=== PATIENT | male | born 1970 | race Hispanic/Latino ===

== ENCOUNTER 2017-07-08 12:40 | Emergency (ER) | payer SELFPAY ==
[2017-07-08] MEDS ORDERED: NA CHLORIDE 0.9% 1,000 ML ONE (15:02)
[2017-07-08] MEDS ORDERED: MORPHINE 4 MG/ML SYR ONE (15:02)
[2017-07-08] MEDS ORDERED: ONDANSETRON 4 MG/2 ML VIAL ONE (15:02)
[2017-07-08 15:10] LABS: Absolute Lymphocytes (CBC) 3.2 K/uL (0.7-4.9); Absolute Monocytes 0.7 K/uL (0.1-1.3); Absolute Neutrophil 4.5 K/uL (1.8-8.0); Basophils % 0.9 % (0-1.3); Hematocrit 40.6 % (39.6-49.0); MCH 32.8 pg (27.0-35.0); MPV 8.3 fL (7.6-11.3); Monocytes % 7.8 % (3.3-12.3); RBC Red Blood Cell Count 4.11 M/uL (4.33-5.43)
[2017-07-08 16:05] LABS: Bicarbonate 31 mEq/L (21-31); Glucose Level 98 mg/dL (65-120); Potassium 3.8 mEq/L (3.6-5.0); Sodium Level 132 mEq/L (135-145)
[2017-07-08 16:08] LABS: BUN Blood Urea Nitrogen 11 mg/dL (6-20); Glomerular Filtration Rate > 90 mL/min (=/>90)
--- NOTE | 2017-07-08 16:40 | RAD REPORT ---
EXAM DESCRIPTION: CT - Soft Tissue Neck W/Contr - 07/08/2017 4:26 pm CLINICAL HISTORY: Neck pain and neck swelling COMPARISON: None. TECHNIQUE: Computed axial tomography of the neck was obtained. 50 cc Isovue-300 administered intrave nously. Coronal and sagittal reconstruction was performed All CT scans are performed using dose optimization technique as appropriate and may include automated exposure control or mA/KV adjustment according to patient size. FINDINGS: A lucency surrounds the right mandibular wisdom tooth. The sinuses are clear. Deformity of the medial wall of the right orbit probably is secondary to old t rauma. The pharynx, larynx, tongue base and subglottic trachea appear unremarkable. Parotid, submandibular and thyroid glands appear unremarkable. No lymphadenopathy is seen IMPRESSION: Lucency surrounding the right mandibular wisdom tooth may indicate an abscess
[2017-07-08] MEDS ORDERED: CLINDAMYCIN 900MG/D5W 900 MG/50 ML BAG IV ONE (16:52)
[2017-07-08] MEDS ORDERED: KETOROLAC 30 MG/ML INJ ONE (16:52)
--- NOTE | 2017-07-08 16:54 | EDPHYS ---
Physician Documentation [facility] Name: Aniceto Zimmerman Sr Age: 47 yrs Sex: Male : 1970 Arrival Date: 07/08/2017 Time: 12:41 Bed 17 Private MD: Aldo Ac E ED Physician Aldo Beltran HPI: 07/08 13:40 This 47 yrs old Male presents to ER via Ambulatory with complaints of cp Toothache, Swollen Glands. 13:40 The patient presents with dysphagia, of both solids and liquids. cp 13:40 The patient describes throat pain as constant. Onset: The symptoms/episode cp began/occurred yesterday. The patient presents with pain. The problem is located in the left and right lower back molars. Duration: The symptoms are continuous, and are steadily getting worse. Associated signs and symptoms: Pertinent positives: swelling, mandibular, Pertinent negatives: fever, vomiting. 13:40 Patient reports being seen yesterday by dentist and being referred to maxillary and cp facial surgeon for removal of wisdom teeth. Historical: - Allergies: 12:52 No Known Allergies; aj - Home Meds: 12:52 B/P Pill [Active]; Methadone 110mg Oral once daily for Chronic pain [Active]; aj levothyroxine 50 mcg tab 1 tab once daily for Hypothyroidism [Active]; hydrochlorothiazide 50 mg Oral tab 1 tab once daily for EDEMA [Active]; - PMHx: 12:52 Hepatitis; Hypertension; Thyroid problem; aj - PSHx: 12:52 None; aj - Immunization history:: Adult Immunizations up to date. - Social history:: Smoking status: Patient uses tobacco products, smokes one-half pack cigarettes per day. ROS: 13:45 Constitutional: Negative for body aches, chills, fever, poor PO intake. cp 13:45 Eyes: Negative for injury, pain, redness, and discharge. cp 13:45 ENT: Positive for dental pain, difficulty swallowing. cp 13:45 Neck: Negative for pain with movement, pain at rest, stiffness. cp 13:45 Cardiovascular: Negative for chest pain, edema. 13:45 Respiratory: Negative for cough, pleurisy, shortness of breath, wheezing. 13:45 Abdomen/GI: Negative for abdominal pain, nausea, vomiting, and diarrhea. 13:45 Skin: Negative for cellulitis, rash. 13:45 Neuro: Negative for altered mental status, headache, weakness. 13:45 All other systems are negative. Exam: 13:50 Constitutional: The patient appears in no acute distress, alert, awake, non-toxic, well cp developed, well nourished. 13:50 Eyes: Pupils equal round and reactive to light, extra-ocular motions intact. Lids and cp lashes normal. Conjunctiva and sclera are non-icteric and not injected. Cornea within normal limits. Periorbital areas with no swelling, redness, or edema. 13:50 Head/face: Noted is swelling, that is mild, of the left jaw. 13:50 ENT: External ear(s): are unremarkable, Ear canal(s): are normal, clear, TM's: bulging, cp is not appreciated, bilaterally, dullness, bilaterally, erythema, is not appreciated, bilaterally, Nose: is normal, Mouth: Lips: moist, Oral mucosa: moist, Tongue: is normal, abscess, is not appreciated, Posterior pharynx: Airway: patent, Uvula: midline, erythema, that is moderate, exudate, that is moderate, Dental exam: dental caries, diffusely, gum swelling, that is mild, specifically in the left and right lower back gumline, missing teeth, diffusely, pain, that is moderate, specifically in the lower left third molar (#17) and lower right third molar (#32), Voice: is hoarse. 13:50 Neck: ROM/movement: is normal, is supple, no range of motions limitations, no meningismus, no nuchal rigidity. 13:50 Chest/axilla: Inspection: normal, Palpation: is normal, no crepitus, no tenderness. 13:50 Cardiovascular: Rate: normal, Rhythm: regular. 13:50 Respiratory: the patient does not display signs of respiratory distress, Respirations: cp normal, no use of accessory muscles, no retractions, no splinting, no tachypnea, Breath sounds: are clear throughout, no decreased breath sounds, no stridor, no wheezing. 13:50 Abdomen/GI: Exam negative for discomfort, distension, guarding, Inspection: abdomen appears normal. 13:50 Back: pain, is absent, ROM is normal. 13:50 Skin: cellulitis, is not appreciated, no rash present. 13:50 Neuro: Orientation: to person, place \T\ time. Mentation: lucid, able to follow commands, Cerebellar function: is grossly normal, Motor: moves all fours, strength is normal, Sensation: no obvious gross deficits. Vital Signs: 12:52 BP 138 / 100; Pulse 69; Resp 17; Temp 98.5; Pulse Ox 98% on R/A; Weight 112.94 kg; aj Height 5 ft. 9 in. (175.26 cm); Pain 10/10; 17:20 BP 153 / 104; Pulse 59; Resp 16; Pulse Ox 99% on R/A; Pain 10/10; ss 12:52 Body Mass Index 36.77 (112.94 kg, 175.26 cm) aj 17:20 pt reports he takes BP medicaiton and verbalizes understanding to mention BP when ss following up with PCP MDM: 13:25 Patient medically screened. cp 14:00 Differential diagnosis: dental abscess group A strep tonsillitis, soren's angina, cp peritonsillar abscess retropharyngeal abcess. 16:50 Data reviewed: vital signs, nurses notes, lab test result(s), radiologic studies, CT cp scan. 16:50 Counseling: I had a detailed discussion with the patient and/or guardian regarding: the cp historical points, exam findings, and any diagnostic results supporting the discharge/admit diagnosis, lab results, radiology results, the need for outpatient follow up, maxillary and facial surgery, to return to the emergency department if symptoms worsen or persist or if there are any questions or concerns that arise at home. Response to treatment: the patient's symptoms have mildly improved after treatment. 07/08 13:36 Order name: Strep; Complete Time: 14:53 cp 07/08 14:54 Interpretation: Reviewed. cp 07/08 14:35 Order name: CBC with Diff; Complete Time: 15:50 cp 07/08 15:50 Interpretation: Normal except: RBC 4.11; HGB 13.4. cp 07/08 14:35 Order name: BMP; Complete Time: 16:34 cp 07/08 16:34 Interpretation: Normal except: NA 132; CL 96. cp 07/08 14:35 Order name: CT Soft Tissue Neck W/contr; Complete Time: 16:42 cp 07/08 14:42 Order name: Throat Culture EDMS 07/08 13:37 Order name: PO challenge; Complete Time: 14:12 cp 07/08 14:35 Order name: IV; Complete Time: 14:58 cp Administered Medications: 15:10 Drug: NS 0.9% 1000 ml Route: IV; Rate: 1 bolus; Site: right antecubital; hb 17:33 Follow up: IV Status: Completed infusion ss 15:10 Drug: morphine 2 mg Route: IVP; Site: right antecubital; hb 16:47 Follow up: Response: No adverse reaction; Pain is decreased ss 15:10 Drug: Zofran 4 mg Route: IVP; Site: right antecubital; hb 16:47 Follow up: Response: No adverse reaction ss 17:12 Drug: TORadol 30 mg Route: IVP; Site: right antecubital; ss 17:33 Follow up: Response: No adverse reaction ss 17:14 Drug: Clindamycin 900 mg Route: IVPB; Infused Over: 30 mins; Site: right antecubital; ss 17:46 Follow up: Response: Medication administered at discharge.; IV Status: Completed hb infusion Disposition: 07/09 08:11 Co-signature as Attending Physician, Aldo Beltran MD I agree with the assessment and ct plan of care. Disposition: 07/08/17 16:53 Discharged to Home. Impression: Left Lower Jaw Swelling, Dental Pain. - Condition is Stable. - Discharge Instructions: Dental Pain. - Prescriptions for Clindamycin HCl 300 mg Oral Capsule - take 1 capsule by ORAL route every 6 hours for 10 days; 40 capsule. Naprosyn 500 mg Oral Tablet - take 1 tablet by ORAL route 2 times per day take with food; 20 tablet. Tramadol 50 mg Oral Tablet - take 1 tablet by ORAL route every 8 hours as needed; 12 tablet. - Medication Reconciliation Form, Thank You Letter, Antibiotic Education, Prescription Opioid Use form. - Follow up: Dao Brown DDS; When: 1 - 2 days; Reason: Recheck today's complaints. - Problem is new. - Symptoms have improved. Signatures: Dispatcher [employer] Marianela Ball RN RN aj Smirch, Shelby, RN RN ss Page, Corey, PA PA cp Baxter, Heather, RN RN hb Appiah, William, MD MD wa
--- NOTE | 2017-07-08 16:54 | ER ---
Nurse's Notes [facility] Name: Aniceto Zimmerman Sr Age: 47 yrs Sex: Male : 1970 Arrival Date: 07/08/2017 Time: 12:41 Bed 17 Private MD: Aldo Ac E Diagnosis: Left Lower Jaw Swelling;Dental Pain Presentation: 07/08 12:50 Presenting complaint: Patient states: "My wisdom tooth is painful and swollen. I don't aj have dental insurance and they told me it would be over a thousand dollars to have it removed." Patent airway noted in triage, NAD. Patient drinking Red bull in triage. Transition of care: patient was not received from another setting of care. Onset of symptoms was July 08, 2017. Care prior to arrival: None. 12:50 Method Of Arrival: Ambulatory aj 12:50 Acuity: HANNA 5 aj Triage Assessment: 12:52 General: Appears in no apparent distress. uncomfortable, Behavior is calm, cooperative, aj appropriate for age. Pain: Complains of pain in lower left third molar. EENT: Oral mucosa is moist. Good dentition noted. Reports pain in mouth. Neuro: Level of Consciousness is awake, alert, obeys commands, Oriented to person, place, time, situation. Respiratory: Airway is patent Respiratory effort is even, unlabored, Respiratory pattern is regular, symmetrical. Derm: Skin is intact, is healthy with good turgor, Skin is pink, warm \\T\\ dry. normal. Historical: - Allergies: 12:52 No Known Allergies; aj - Home Meds: 12:52 B/P Pill [Active]; Methadone 110mg Oral once daily for Chronic pain [Active]; aj levothyroxine 50 mcg tab 1 tab once daily for Hypothyroidism [Active]; hydrochlorothiazide 50 mg Oral tab 1 tab once daily for EDEMA [Active]; - PMHx: 12:52 Hepatitis; Hypertension; Thyroid problem; aj - PSHx: 12:52 None; aj - Immunization history:: Adult Immunizations up to date. - Social history:: Smoking status: Patient uses tobacco products, smokes one-half pack cigarettes per day. Screenin:22 Abuse screen: Denies threats or abuse. Denies injuries from another. Nutritional hb screening: No deficits noted. Tuberculosis screening: No symptoms or risk factors identified. Fall Risk None identified. Assessment: 14:22 General: Appears in no apparent distress. uncomfortable, Behavior is calm, cooperative. hb Pain: Pain currently is 7 out of 10 on a pain scale. Neuro: Level of Consciousness is awake, alert, obeys commands, Oriented to person, place, time, situation. Cardiovascular: Capillary refill < 3 seconds Patient's skin is warm and dry. Respiratory: Airway is patent Trachea midline Respiratory effort is even, unlabored, Respiratory pattern is regular, symmetrical. EENT: Reports pain in mouth when swallowing. 15:11 Reassessment: Pt reports left sided neck pain 8/10, requesting pain medication. PA Page hb notified, morphine and Zofran administered as ordered. Bed locked in low position, call light within reach. 17:19 Reassessment: Patient appears in no apparent distress at this time. Patient and/or ss family updated on plan of care and expected duration. Pain level reassessed. Patient is alert, oriented x 3, equal unlabored respirations, skin warm/dry/pink. awaiting for clindamycin to finish infusing prior to discharge home. Vital Signs: 12:52 BP 138 / 100; Pulse 69; Resp 17; Temp 98.5; Pulse Ox 98% on R/A; Weight 112.94 kg; aj Height 5 ft. 9 in. (175.26 cm); Pain 10/10; 17:20 BP 153 / 104; Pulse 59; Resp 16; Pulse Ox 99% on R/A; Pain 10/10; ss 12:52 Body Mass Index 36.77 (112.94 kg, 175.26 cm) aj 17:20 pt reports he takes BP medicaiton and verbalizes understanding to mention BP when ss following up with PCP ED Course: 12:41 Patient arrived in ED. as 12:42 Aldo Ac MD is Private Physician. as 12:52 Triage completed. aj 12:52 Arm band placed on right wrist. Patient placed in waiting room, Patient notified of aj wait time. 13:22 Brian Phelan PA is PHCP. cp 13:22 Aldo Beltran MD is Attending Physician. cp 14:15 Patient has correct armband on for positive identification. Call light in reach. hb 14:22 Strep Sent. ag 14:22 Strep swab sent to lab. ag 14:39 Radiology exam delayed due to lab results not completed at this time. (BUN/Creatinine). jg1 14:39 Radiology exam delayed due to IV insertion attempt and/or patient not having jg1 appropriate IV at this time. 14:42 Gissell Pathak, RN is Primary Nurse. hb 14:58 Inserted saline lock: 20 gauge in right antecubital area, using aseptic technique. hb Blood collected. 16:05 Radiology exam delayed due to lab results not completed at this time. (BUN/Creatinine). jg1 16:26 CT Soft Tissue Neck W/contr In Process Unspecified. EDMS 16:50 Dao Brown DDS is Referral Physician. cp 17:19 No provider procedures requiring assistance completed. ss 17:46 IV discontinued, intact, bleeding controlled, No redness/swelling at site. Pressure hb dressing applied. Administered Medications: 15:10 Drug: NS 0.9% 1000 ml Route: IV; Rate: 1 bolus; Site: right antecubital; hb 17:33 Follow up: IV Status: Completed infusion ss 15:10 Drug: morphine 2 mg Route: IVP; Site: right antecubital; hb 16:47 Follow up: Response: No adverse reaction; Pain is decreased ss 15:10 Drug: Zofran 4 mg Route: IVP; Site: right antecubital; hb 16:47 Follow up: Response: No adverse reaction ss 17:12 Drug: TORadol 30 mg Route: IVP; Site: right antecubital; ss 17:33 Follow up: Response: No adverse reaction ss 17:14 Drug: Clindamycin 900 mg Route: IVPB; Infused Over: 30 mins; Site: right antecubital; ss 17:46 Follow up: Response: Medication administered at discharge.; IV Status: Completed hb infusion Outcome: 16:53 Discharge ordered by MD. cp 17:19 Condition: good ss 17:19 Discharge instructions given to patient, family, Instructed on discharge instructions, follow up and referral plans. medication usage, Demonstrated understanding of instructions, follow-up care, medications, Prescriptions given X 3. 17:46 Discharged to home ambulatory, with family. hb 17:46 Patient left the ED. hb Signatures: Dispatcher [employer] EDNJ Marianela Wolf RN RN aj Garcia, Jessica jg1 Martinez, Amelia as Smirch, Shelby, RN RN Jaqueline Tolbert Corey, PA PA cp Gissell Pathak, RN RN hb
[2017-07-08 17:50] VITALS: TEMP 98.5
[2017-07-08 17:51] VITALS: BP 153/104; O2SAT 99
== END 2017-07-08 17:46 | disposition home or self-care (01) ==
LOC: ER 12:40
DX: K08.89 Other specified disorders of teeth and supporting structures (principal); I10 Essential (primary) hypertension; E03.9 Hypothyroidism, unspecified; F17.210 Nicotine dependence, cigarettes, uncomplicated
CPT/HCPCS: 36415; 70491; 80048; 85025; 87070; 87081; 96361; 96365; 96375; 99284; J2405; J7030

== ENCOUNTER 2019-02-20 13:01 | Emergency (ER) | payer SELFPAY ==
--- NOTE | 2019-02-20 14:37 | RAD REPORT ---
EXAM DESCRIPTION: RAD - Chest Pa And Lat (2 Views) - 02/20/2019 2:30 pm CLINICAL HISTORY: PAIN, chest pain, lateral chest wall pain COMPARISON: December 2016 TECHNIQUE: PA and lateral views of the chest were obtained. FINDINGS: The lungs are clear of an acute infiltrate. Scarring are linear atelectasis seen in the la teral left lung base. Heart size is normal and central vasculature is within normal limits. No ple ural effusion or pneumothorax seen. No acute bony finding noted. No aortic abnormality. IMPRESSION: No acute cardiopulmonary process. No significant interval change.
--- NOTE | 2019-02-20 15:32 | EDPHYS ---
Physician Documentation [facility] Name: Aniceto Zimmerman Sr Age: 48 yrs Sex: Male : 1970 Arrival Date: 02/20/2019 Time: 13:02 Bed 10 Private MD: ED Physician Brian Contreras HPI: 02/20 15:24 This 48 yrs old Male presents to ER via Ambulatory with complaints of Rib ralf Pain, Fall Injury - 3 days ago. 15:24 Details of fall: The patient fell from an upright position, while walking. Onset: The ralf symptoms/episode began/occurred 3 day(s) ago. Associated injuries: The patient sustained injury to the chest. Severity of symptoms: At their worst the symptoms were mild, moderate, in the emergency department the symptoms. The patient has not experienced similar symptoms in the past. Historical: - Allergies: 13:30 No Known Allergies; ss - Home Meds: 13:30 Methadone 110mg Oral once daily for Chronic pain [Active]; Harvoni 90-400 mg oral tab 1 ss tab once daily [Active]; - PMHx: 13:30 Hepatitis; Hypertension; Thyroid problem; ss - Immunization history:: Adult Immunizations up to date. - Social history:: Smoking status: Patient uses tobacco products, smokes one pack cigarettes per day. - Ebola Screening: : Patient denies exposure to infectious person Patient denies travel to an Ebola-affected area in the 21 days before illness onset. - Family history:: not pertinent. ROS: 15:24 Constitutional: Negative for fever, chills, and weight loss, Eyes: Negative for injury, ralf pain, redness, and discharge, ENT: Negative for injury, pain, and discharge, Neck: Negative for injury, pain, and swelling, Cardiovascular: Negative for chest pain, palpitations, and edema, Abdomen/GI: Negative for abdominal pain, nausea, vomiting, diarrhea, and constipation, Back: Negative for injury and pain, : Negative for injury, bleeding, discharge, and swelling, MS/Extremity: Negative for injury and deformity, Skin: Negative for injury, rash, and discoloration, Neuro: Negative for headache, weakness, numbness, tingling, and seizure, Psych: Negative for depression, anxiety, suicide ideation, homicidal ideation, and hallucinations, Allergy/Immunology: Negative for hives, rash, and allergies, Endocrine: Negative for neck swelling, polydipsia, polyuria, polyphagia, and marked weight changes. 15:24 Respiratory: Positive for shortness of breath, at rest. Exam: 15:24 Constitutional: This is a well developed, well nourished patient who is awake, alert, ralf and in no acute distress. Head/Face: Normocephalic, atraumatic. Eyes: Pupils equal round and reactive to light, extra-ocular motions intact. Lids and lashes normal. Conjunctiva and sclera are non-icteric and not injected. Cornea within normal limits. Periorbital areas with no swelling, redness, or edema. ENT: Nares patent. No nasal discharge, no septal abnormalities noted. Tympanic membranes are normal and external auditory canals are clear. Oropharynx with no redness, swelling, or masses, exudates, or evidence of obstruction, uvula midline. Mucous membranes moist. Neck: Trachea midline, no thyromegaly or masses palpated, and no cervical lymphadenopathy. Supple, full range of motion without nuchal rigidity, or vertebral point tenderness. No Meningismus. Cardiovascular: Regular rate and rhythm with a normal S1 and S2. No gallops, murmurs, or rubs. Normal PMI, no JVD. No pulse deficits. Respiratory: Lungs have equal breath sounds bilaterally, clear to auscultation and percussion. No rales, rhonchi or wheezes noted. No increased work of breathing, no retractions or nasal flaring. Abdomen/GI: Soft, non-tender, with normal bowel sounds. No distension or tympany. No guarding or rebound. No evidence of tenderness throughout. Back: No spinal tenderness. No costovertebral tenderness. Full range of motion. Male : Normal genitalia with no discharge or lesions. Skin: Warm, dry with normal turgor. Normal color with no rashes, no lesions, and no evidence of cellulitis. MS/ Extremity: Pulses equal, no cyanosis. Neurovascular intact. Full, normal range of motion. Neuro: Awake and alert, GCS 15, oriented to person, place, time, and situation. Cranial nerves II-XII grossly intact. Motor strength 5/5 in all extremities. Sensory grossly intact. Cerebellar exam normal. Normal gait. Psych: Awake, alert, with orientation to person, place and time. Behavior, mood, and affect are within normal limits. 15:24 Chest/axilla: Inspection: no acute changes, Palpation: tenderness, that is mild, of the left lateral anterior chest and left lateral posterior chest, Axilla: are normal, Lymph nodes: lymphadenopathy is not appreciated. 15:24 Musculoskeletal/extremity: DVT Exam: no pain, no tenderness, negative Homans' sign noted on exam, no appreciated bluish discoloration, no erythema, no increased warmth, swelling. Vital Signs: 13:30 BP 131 / 87; Pulse 74; Resp 15; Temp 97.6(TE); Pulse Ox 98% on R/A; Weight 113.4 kg; ss Height 5 ft. 9 in. (175.26 cm); Pain 10/10; 13:30 Body Mass Index 36.92 (113.40 kg, 175.26 cm) ss MDM: 13:51 Patient medically screened. [facility] 15:26 Data reviewed: vital signs, nurses notes, radiologic studies. [facility] 02/20 13:52 Order name: Chest Pa And Lat (2 Views) XRAY [facility] 02/20 15:23 Order name: INCENTIVE SPIROMETRY [facility] Administered Medications: No medications were administered Disposition: 02/20/19 15:31 Discharged to Home. Impression: Fall due to bumping against object, Contusion of left front wall of thorax, Contusion of left back wall of thorax, Edema, unspecified. - Condition is Stable. - Discharge Instructions: Rib Contusion, Edema, Fall Prevention in the Home, Rib Fracture, Edema, [id number], Fall Prevention in the Home, [id number], Rib Fracture, [id number]-[id number]. - Medication Reconciliation Form, Thank You Letter, Antibiotic Education, Prescription Opioid Use form. - Follow up: Private Physician; When: 2 - 3 days; Reason: Recheck today's complaints, Continuance of care, Re-evaluation by your physician. Follow up: Lenny Summers MD; When: 2 - 3 days; Reason: Recheck today's complaints, Re-evaluation by your physician. Follow up: Aldo Donaldson MD; When: 2 - 3 days; Reason: Recheck today's complaints, Re-evaluation by your physician. - Problem is new. - Symptoms have improved. Signatures: Dispatcher [employer] EDBrian Garcia MD MD cha Smirch, Shelby, RN RN ss Rob Dillon, RN RN rv Corrections: (The following items were deleted from the chart) 15:31 15:31 02/20/2019 15:31 Discharged to Home. Impression: Fall due to bumping against ralf object; Contusion of left front wall of thorax; Contusion of left back wall of thorax; Edema, unspecified. Condition is Stable. Forms are Medication Reconciliation Form, Thank You Letter, Antibiotic Education, Prescription Opioid Use. Follow up: Private Physician; When: 2 - 3 days; Reason: Recheck today's complaints, Continuance of care, Re-evaluation by your physician. Problem is new. Symptoms have improved. [facility] 15:44 15:31 02/20/2019 15:31 Discharged to Home. Impression: Fall due to bumping against rv object; Contusion of left front wall of thorax; Contusion of left back wall of thorax; Edema, unspecified. Condition is Stable. Forms are Medication Reconciliation Form, Thank You Letter, Antibiotic Education, Prescription Opioid Use. Follow up: Private Physician; When: 2 - 3 days; Reason: Recheck today's complaints, Continuance of care, Re-evaluation by your physician. Follow up: Lenny Summers; When: 2 - 3 days; Reason: Recheck today's complaints, Re-evaluation by your physician. Follow up: Aldo Donaldson; When: 2 - 3 days; Reason: Recheck today's complaints, Re-evaluation by your physician. Problem is new. Symptoms have improved. [facility]
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
[2019-02-20 18:21] VITALS: BP 131/87; TEMP 97.6; O2SAT 98
== END 2019-02-20 15:44 | disposition home or self-care (01) ==
LOC: ER 13:01
DX: S20.212A Contusion of left front wall of thorax, initial encounter (principal); S20.222A Contusion of left back wall of thorax, initial encounter; R60.9 Edema, unspecified; W19.XXXA Unspecified fall, initial encounter; Y93.01 Activity, walking, marching and hiking; Y92.9 Unspecified place or not applicable; I10 Essential (primary) hypertension; E07.9 Disorder of thyroid, unspecified; F17.210 Nicotine dependence, cigarettes, uncomplicated
CPT/HCPCS: 71046; 99283

== ENCOUNTER 2019-06-02 20:21 | Emergency (ER) | payer SELFPAY ==
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
[2019-06-02] MEDS ORDERED: CYCLOBENZAPRINE 10 MG TAB ONE (21:38)
[2019-06-02] MEDS ORDERED: HYDROCODONE/APAP 5/325 MG TAB ONE (21:38)
[2019-06-02 22:25] VITALS: BP 112/76; TEMP 97.6; O2SAT 94
== END 2019-06-02 22:18 | disposition home or self-care (01) ==
LOC: ER 20:21
DX: M43.6 Torticollis (principal); F17.210 Nicotine dependence, cigarettes, uncomplicated
CPT/HCPCS: 99283

== ENCOUNTER 2020-10-04 14:06 | Emergency (ER) | payer OTHER, SELFPAY ==
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
--- NOTE | 2020-10-04 17:35 | RAD REPORT ---
EXAM DESCRIPTION: RAD - Thoracic Spine Ap/Lat - 10/04/2020 4:59 pm CLINICAL HISTORY: Back pain FINDINGS: No dislocation No fracture is seen
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
[2020-10-04 19:17] VITALS: BP 132/92; TEMP 98.2; O2SAT 100
== END 2020-10-04 18:35 | disposition home or self-care (01) ==
LOC: ER 14:06
DX: G89.11 Acute pain due to trauma (principal); V49.40XA Driver injured in collision with unspecified motor vehicles in traffic accident, initial encounter; I10 Essential (primary) hypertension; E07.9 Disorder of thyroid, unspecified; F17.210 Nicotine dependence, cigarettes, uncomplicated
CPT/HCPCS: 70450; 72070; 72125; 99282

== ENCOUNTER 2020-10-12 13:29 | Emergency (ER) | payer SELFPAY ==
--- NOTE | 2020-10-12 16:36 | RAD REPORT ---
EXAM DESCRIPTION: RAD - C Spine Ap/Lat - 10/12/2020 4:19 pm CLINICAL HISTORY: PAIN COMPARISON: No comparisons FINDINGS: No fracture or traumatic malalignment of the cervical spine is identified. The odontoid vi ew is unremarkable. Cervical spondylosis is noted with spurring at the C5-6 level. IMPRESSION: No fracture or malalignment of the cervical spine.
--- NOTE | 2020-10-12 16:37 | RAD REPORT ---
EXAM DESCRIPTION: RAD - Spine Thoracic W/Swimmers - 10/12/2020 4:19 pm CLINICAL HISTORY: back pain COMPARISON: Thoracic Spine Ap/Lat dated 10/04/2020 FINDINGS: No fracture or malalignment of the thoracic spine is identified. There is some scattered e ndplate spurring but otherwise no significant focal degenerative changes. Vertebral body heights are maintained. IMPRESSION: No thoracic spine fracture is identified.
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
[2020-10-12 17:30] VITALS: BP 114/77; TEMP 97.4; O2SAT 96
== END 2020-10-12 17:22 | disposition home or self-care (01) ==
LOC: ER 13:29
DX: M54.2 Cervicalgia (principal); V49.9XXD Car occupant (driver) (passenger) injured in unspecified traffic accident, subsequent encounter; I10 Essential (primary) hypertension; F17.210 Nicotine dependence, cigarettes, uncomplicated
CPT/HCPCS: 72040; 72072; 99283

== ENCOUNTER 2021-01-13 01:59 | Emergency (ER) | payer SELFPAY ==
[2021-01-13] MEDS ORDERED: NA CHLORIDE 0.9% 1,000 ML ONE (03:44)
[2021-01-13 03:46] LABS: Absolute Lymphocytes (CBC) 2.3 K/uL (0.7-4.9); Basophils % 0.8 % (0-1.3); Hematocrit 35.9 % (39.6-49.0); Lymphocytes % 32.3 % (15.3-44.8); MPV 7.4 fL (7.6-11.3); RBC Red Blood Cell Count 3.69 M/uL (4.33-5.43)
[2021-01-13 03:52] LABS: C-Reactive Protein 12.5 mg/L (<3.00); Potassium 4.1 mmol/L (3.5-5.1)
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
[2021-01-13 06:02] VITALS: BP 123/84; TEMP 97.6; O2SAT 98
--- NOTE | 2021-01-13 07:38 | RAD REPORT ---
EXAM DESCRIPTION: RAD - Chest Single View - 01/13/2021 3:29 am CLINICAL HISTORY: CHEST PAIN COMPARISON: Chest Pa And Lat (2 Views) dated 02/20/2019; Chest Single View dated 01/18/2017; CHEST S SUSANNAH VIEW dated 06/28/2014; CHEST SINGLE VIEW dated 03/07/2011 FINDINGS: Lines: None. Lungs: No evidence of edema or pneumonia. Pleural: No significant pleural effusions or pneumothorax. Cardiac: The heart size is within normal limits. Bones: No acute fractures. Other: IMPRESSION: No acute cardiopulmonary disease.
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
== END 2021-01-13 05:43 | disposition home or self-care (01) ==
LOC: ER 01:59
DX: K05.6 Periodontal disease, unspecified (principal); I10 Essential (primary) hypertension; F17.210 Nicotine dependence, cigarettes, uncomplicated
CPT/HCPCS: 36415; 70491; 71045; 80048; 85025; 86140; 87070; 87081; 96360; 99285; J7030; Q9967

== ENCOUNTER 2021-12-04 16:16 | Emergency (ER) | payer OTHER, SELFPAY ==
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
[2021-12-04 18:34] VITALS: TEMP 97.2; O2SAT 99
== END 2021-12-04 17:46 | disposition home or self-care (01) ==
LOC: ER 16:16
DX: M54.2 Cervicalgia (principal); M54.50 Low back pain, unspecified; V49.40XA Driver injured in collision with unspecified motor vehicles in traffic accident, initial encounter; I10 Essential (primary) hypertension; F17.210 Nicotine dependence, cigarettes, uncomplicated
CPT/HCPCS: 72040; 72100; 99284

== ENCOUNTER 2023-12-10 09:06 | Emergency (ER) | payer OTHER, SELFPAY ==
--- OUTSIDE RECORDS SUMMARY | 2023-12-10 09:09 | XMS REPORT | Continuity of Care Document ---
Author Name Unknown Address [address] [place] [address] [facility] thconnect Address [address] [place] [address] Care Team Providers Care Property Economist Name Role Phone PCP, PATIENT DOES NOT HAVE A Primary Care Physic eduardo Unavailable RADIOLOGY Attending Clinician Unavailable Radiology Attending Clinician Unavailable MARISOL LOMBARDO Admitting Clinician Unavailable Problems Condition Name Condition Details Condition Category Status Onset Date Resolution Date Last Treatment Date Treating Clinician Comments Source Abdominal pain, other specified site Abdominal pain, other specified site Disease Active 04-12 00:00: 00 [facility] Allergies, Adverse Reactions, Alerts Allergy Name Allergy Type Status Severity Reaction(s) Onset Date Inactive Date Treating Clinician Comments Source NO KNOWN ALLERGIE S Drug Class Active [facility] Social History Social Habit Start Date Stop Date Quantity Comments Source [facility] History of tobacco use Current smoker [facility] Alcohol intake 2013-04-12 00:00:00 2013-04-12 00:00:00 [facility] Sex Ass[birth year] At 1970 00:00:00 1970 00:00:00 [facility] Smoking Status Start Date Stop Date Source Ex-smoker [facility] Medications Ordered Medication Name Filled Medication Name Start Date Stop Date Current Medication? Ordering Clinician Indication Dosage Frequency Signature (SIG) Comments Components Source NAPROSYN ORAL 08-19 17:05: 53 Yes None Entered [facility] Procedures Procedure Date / Time Performed Performing Clinicia n Source US HEAD NECK 2023-07-14 14:31:16 Requisition, Paper [facility] Encounters Start Date/Time End Date/Time Encounter Type Admission Type Attending Clinicians Care Facility Care Department Encounter ID Source 2023-07-14 08:51:57 2023-07-14 23:59:00 Outpatient R RADIOLOGY [facility] [id number] [facility] 2023-07-14 08:51:57 2023-07-14 23:59:00 Hospital Encounter Radiology [facility] [id number] [facility] Results Test Description Test Time Test Comments Results Resul t Comments Source US HEAD NECK 2023-06-28 7 14:36:24 HISTORY: Decreased thyroxine (T4) level. TECHNIQUE: Thyroid gland is evaluated in multiple planes without and withcolor imaging. FINDINGS: Normal sized thyroid gland with homogeneous echotexture is notvisualized. Instead, thyroid bed is occupied by very small thyroid glandwith heterogeneous tissue. Right lobe of the thyroid gland is 3.3 x 1.1 x 1.3 cm (2.4 cc), isthmusportion is 0 mm in thickness, left lobe is 1.9 x 0.8 x 1.3 cm (1.1 ?cc) insize. [facility]
--- NOTE | 2023-12-10 10:09 | RAD REPORT ---
EXAM DESCRIPTION: RAD - Ankle Left 3 View -12/10/2023 10:03 am CLINICAL HISTORY: Left ankle pain FINDINGS: No fracture or dislocation is seen. No significant bone or joint abnormality noted
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
[2023-12-10] MEDS ORDERED: IBUPROFEN 400 MG TAB ONE (11:48)
[2023-12-10] MEDS ORDERED: HYDROCODONE/APAP 7.5/325 MG TAB ONE (11:48)
[2023-12-10 12:10] VITALS: BP 127/71; TEMP 98; O2SAT 100
== END 2023-12-10 12:04 | disposition home or self-care (01) ==
LOC: ER 09:06
DX: S93.412A Sprain of calcaneofibular ligament of left ankle, initial encounter (principal)
CPT/HCPCS: 99283

== ENCOUNTER 2023-12-30 09:12 | Emergency (ER) | payer OTHER ==
--- OUTSIDE RECORDS SUMMARY | 2023-12-30 09:16 | XMS REPORT | Continuity of Care Document ---
Author Name Unknown Address [address] [place] [address] [facility] thconnect Address [address] [place] [address] Care Team Providers Care Button Attaching Machine Operator Name Role Phone PCP, PATIENT DOES NOT HAVE A Primary Care Physic eduardo Unavailable RADIOLOGY Attending Clinician Unavailable Radiology Attending Clinician Unavailable MARISOL LOMBARDO Admitting Clinician Unavailable Problems Condition Name Condition Details Condition Category Status Onset Date Resolution Date Last Treatment Date Treating Clinician Comments Source Abdominal pain, other specified site Abdominal pain, other specified site Disease Active 04-12 00:00: 00 [facility] Allergies, Adverse Reactions, Alerts Allergy Name Allergy Type Status Severity Reaction(s) Onset Date Inactive Date Treating Clinician Comments Source NO KNOWN ALLERGIE S Drug Class Active [facility] Social History Social Habit Start Date Stop Date Quantity Comments Source Sexual orientation [facility] History of tobacco use Current smoker [facility] Alcohol intake 2013-04-12 00:00:00 2013-04-12 00:00:00 [facility] Sex Assigned At 1970 00:00:00 1970 00:00:00 [facility] Smoking Status Start Date Stop Date Source Ex-smoker [facility] Medications Ordered Medication Name Filled Medication Name Start Date Stop Date Current Medication? Ordering Clinician Indication Dosage Frequency Signature (SIG) Comments Components Source NAPROSYN ORAL 08-19 17:05: 53 Yes None Entered [facility] Procedures Procedure Date / Time Performed Performing Clinicia n Source US HEAD NECK 2023-07-14 14:31:16 Requisition, Paper [facility] Encounters Start Date/Time End Date/Time Encounter Type Admission Type Attending Clinicians Care Facility Care Department Encounter ID Source 2023-07-14 08:51:57 2023-07-14 23:59:00 Outpatient R RADIOLOGY [facility] [id number] [facility] 2023-07-14 08:51:57 2023-07-14 23:59:00 Hospital Encounter Radiology [facility] [id number] [facility] Results Test Description Test Time Test [...] 0.8 x 1.3 cm (1.1 ?cc) insize. [facility]
--- NOTE | 2023-12-30 11:16 | RAD REPORT ---
Exam:Knee Left 3 View HISTORY: Left knee pain FINDINGS: No fracture or dislocation seen 2 cm sclerosis proximal tibia likely benign. It is recommended that patient have a follow-up x-ray in 3 months to assess stability Minimal medial joint space narrowing
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
[2023-12-31 00:12] VITALS: BP 141/81; O2SAT 97
== END 2023-12-30 11:51 | disposition home or self-care (01) ==
LOC: ER 09:12
DX: M25.562 Pain in left knee (principal)
CPT/HCPCS: 99281

== ENCOUNTER 2024-01-28 18:29 | Emergency (ER) | payer OTHER ==
--- OUTSIDE RECORDS SUMMARY | 2024-01-28 18:32 | XMS REPORT | Continuity of Care Document ---
Author Name Unknown Address [address] [place] [address] [facility] thconnect Address [address] [place] [address] Care Team Providers Care Mail Handler Assistant Name Role Phone PCP, PATIENT DOES NOT HAVE A Primary Care Physic eduardo Unavailable MATILDA NICHOLS Attending Clinician MATILDA Blanco Attending Clinician UnavailKIKA Bradley Attending Clinician Unavailable KIKA NEWBERRY Attending Clinician Unavailable RADIOLOGY Attending Clinician Unavailable Radiology Attending Clinician Unavailable MARISOL LOMBARDO Admitting Clinician Unavailable Payers Payer Name Policy Type Policy Number Effective Date Expirati on Date Source [facility] [id number] Problems Condition Name Condition Details Condition Category Status Onset Date Resolution Date Last Treatment Date Treating Clinician Comments Source Abdominal pain, other specified site Abdominal pain, other specified site Disease Active 04-12 00:00: 00 [facility] Allergies, Adverse Reactions, Alerts Allergy Name Allergy Type Status Severity Reaction(s) Onset Date Inactive Date Treating Clinician Comments Source NO KNOWN ALLERGIE S Drug Class Active [facility] Social History Social Habit Start Date Stop Date Quantity Comments Source Sexual orientation U [facility] History of tobacco use Current smoker [facility] Alcohol intake 2013-04-12 00:00:00 2013-04-12 00:00:00 [facility] Sex Assigned At 1970 00:00:00 1970 00:00:00 [facility] Smoking Status Start Date Stop Date Source Ex-smoker [facility] Medications Ordered Medication Name Filled Medication Name Start Date Stop Date Current Medication? Ordering Clinician Indication Dosage Frequency Signature (SIG) Comments Components Source NAPROSYN ORAL 08-19 17:05: [address] [facility] Procedures Procedure Date / Time Performed Performing Clinicia n Source HEAD NECK 2023-07-14 14:31:16 Requisition, Paper Un [facility] Encounters Start Date/Time End Date/Time Encounter Type Admission Type Attending Clinicians Care Facility Care Department Encounter ID Source 2024-01-19 15:45:00 2024-01-19 15:45:00 Outpatient R MATILDA NICHOLS CRAIG [facility] [id number] [facility] 2024-01-19 14:00:00 2024-01-19 14:00:00 Outpatient R KIKA NEWBERRY SELENA [facility] [id number] [facility] 2023-07-14 08:51:57 2023-07-14 23:59:00 Outpatient R RADIOLOGY [facility] [id number] [facility] 2023-07-14 08:51:57 2023-07-14 23:59:00 Hospital Encounter Radiology [facility] [id number] [facility] Results Test Description Test Time Test Comments Results Resul t Comments Source HEAD NECK 2023-06-28 7 14:36:24 HISTORY: Decreased [...] 0.8 x 1.3 cm (1.1 ?cc) insize. [facility]
[2024-01-28 19:37] LABS: PT Prothrombin Time 11.2 SECONDS (9.4-12.5)
[2024-01-28 19:43] LABS: Absolute Eosinophils 0.1 K/uL (0-0.5); Absolute Lymphocytes (CBC) 1.6 K/uL (0.7-4.9); Absolute Monocytes 0.5 K/uL (0.1-1.3); Absolute Neutrophil 6.7 K/uL (1.8-8.0); Basophils % 0.4 % (0-1.3); Eosinophils % 0.8 % (0-4.4); Hematocrit 37.5 % (39.6-49.0); Hemoglobin 12.9 g/dL (13.6-17.9); Lymphocytes % 17.6 % (15.3-44.8); MCH 32.2 pg (27.0-35.0); MCHC 34.4 g/dL (32.0-36.0); MCV 93.8 fL (80-100); MPV 7.5 fL (7.6-11.3); Monocytes % 6.1 % (3.3-12.3); Neutrophils % 75.1 % (41.7-73.7); Nucleated Red Blood Cells % 0.1 % (0-0); Platelets 345 thou/uL (152-406); RBC Red Blood Cell Count 3.99 M/uL (4.33-5.43); Red Cell Distribution Width 13.2 % (12.1-15.2)
[2024-01-28 19:55] LABS: ALT/SGPT 23 U/L (16-61); AST/SGOT 20 U/L (15-37); Albumin 3.5 g/dL (3.4-5.0); Albumin/Globulin Ratio 0.8 (1.1-1.8); Alkaline Phosphatase 72 U/L (45-117); Anion Gap 5.9 mEq/L (5.0-15.0); BUN Blood Urea Nitrogen 15 mg/dL (7-18); Bicarbonate 31 mEq/L (21-32); Bilirubin Direct < 0.2 mg/dL (0-0.2); Bilirubin Total 0.2 mg/dL (0.2-1.0); Globulin 4.2 g/dL (2.3-3.5); Glomerular Filtration Rate 104 ml/min (=/>90); Glucose Level 105 mg/dL (74-106); NT PRO-BNP 62 pg/mL (<125); Potassium 3.9 mEq/L (3.5-5.1); Protein, Total 7.7 g/dL (6.4-8.2); Sodium Level 136 mEq/L (136-145); Troponin High Sensitivity 6.1 pg/mL (<58.9)
--- NOTE | 2024-01-28 20:36 | RAD REPORT ---
EXAMINATION: ONE VIEW CHEST XR CLINICAL INDICATION: Male, 53 years old.right leg swelling TECHNIQUE: 1 View, AP supine, X-ray of the chest was performed. [id number]. COMPARISON: No prior exam. FINDINGS: Lungs and pleura: Clear lungs. No effusion. Chronic elevation of the right hemidiaphragm. Heart and mediastinum: Normal heart size. Unremarkable mediastinal contours. Osseous structures: No acute abnormality. Tubes/lines: None Other: None. IMPRESSION: No acute intrathoracic abnormality.
--- NOTE | 2024-01-28 20:52 | RAD REPORT ---
Extremity Venous Uni Ltd CLINICAL INDICATION: Male, 53 years old.Pain;Swelling RIGHT TECHNIQUE: Complete duplex sonography of the lower extremity veins was performed of the affected limb . The examination included compression for vein patency, color Doppler imaging and flow augmentation in response to distal compression of the distal external iliac, common femoral, femoral, popliteal, peroneal, tibial and great saphenous veins. [id number]. COMPARISON: 04/08/17 FINDINGS: Duplex sonography imaging demonstrates all deep examined to be fully compressible with spontaneous, p hasic and augmented flow in the affected limb. Superficial thrombosed vein in the calf. IMPRESSION: 1. No evidence of deep venous thrombosis in the right lower extremity. 2. Superficial thrombosed vein in the calf.
--- NOTE | 2024-01-28 20:56 | RAD REPORT ---
EXAMINATION: US LOWER EXTREMITIES ARTERIAL DOPPLER BILATERAL CLINICAL INDICATION: Male, 53 years old. Pain;Swelling RIGHT TECHNIQUE: Arterial duplex ultrasound was performed of the right lower extremity with real-time and D oppler evaluation. [id number]. COMPARISON: No prior exam. FINDINGS: Right leg Doppler:. Common femoral artery: Waveform: Triphasic Peak systolic velocity (cm/sec): 108 Femoral Waveform: Triphasic Peak systolic velocity (cm/sec): 95 Popliteal Waveform: Triphasic Peak systolic velocity (cm/sec): 54 Posterior Tibial: Waveform: Triphasic Peak systolic velocity (cm/sec): 58 Dorsalis pedis: Waveform: Triphasic Peak systolic velocity (cm/sec): 49 IMPRESSION: No flow-limiting stenosis in the right artery.
[2024-01-28] MEDS ORDERED: ASPIRIN 81 MG CHEWABLE TABLET ONE (21:13)
[2024-01-28] MEDS ORDERED: CEPHALEXIN 250 MG CAP ONE (21:14)
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
[2024-01-28 21:34] VITALS: TEMP 97.8
[2024-01-28 21:38] VITALS: BP 145/87; O2SAT 94
== END 2024-01-28 21:28 | disposition home or self-care (01) ==
LOC: ER 18:29
DX: I80.01 Phlebitis and thrombophlebitis of superficial vessels of right lower extremity (principal); I10 Essential (primary) hypertension
CPT/HCPCS: 36415; 71045; 80048; 80076; 83735; 83880; 84484; 85025; 85610; 93926; 93971; 99284

== ENCOUNTER 2024-03-02 13:31 | Emergency (ER) | payer OTHER ==
--- OUTSIDE RECORDS SUMMARY | 2024-03-02 13:34 | XMS REPORT | Continuity of Care Document ---
Author Name Unknown Address [address] [facility] [facility] [address] [place] [address] [facility] thconnect Address [address] [facility] [address] [place] [address] Care Team Providers Care Stunt Double Name Role Phone PCP, PATIENT DOES NOT HAVE A Primary Care Physic eduardo Unavailable MATILDA NICHOLS Attending Clinician UnavailMATILDA Elizabeth Attending Clinician UnavailKIKA Bradley Attending Clinician Unavailable KIKA NEWBERRY Attending Clinician Unavailable RADIOLOGY Attending Clinician Unavailable Radiology Attending Clinician Unavailable MARISOL LOMBARDO Admitting Clinician Unavailable Payers Payer Name Policy Type Policy Number Effective Date Expirati on Date Source [facility] [id number] Problems Condition Name Condition Details Condition Category Status Onset Date Resolution Date Last Treatment Date Treating Clinician Comments Source Abdominal pain, other specified site Abdominal pain, other specified site Disease Active 04-12 00:00: 00 [facility] Allergies, Adverse Reactions, Alerts Allergy Name Allergy Type Status Severity Reaction(s) Onset Date Inactive Date Treating Clinician Comments Source NO KNOWN ALLERGIE S Drug Class Active [facility] Social History Social Habit Start Date Stop Date Quantity Comments Source Sexual orientation U [facility] History of tobacco use Current smoker [facility] Alcohol intake 2013-04-12 00:00:00 2013-04-12 00:00:00 [facility] Sex Assigned At 1970 00:00:00 1970 00:00:00 [facility] Smoking Status Start Date Stop Date Source Ex-smoker [facility] Medications Ordered Medication Name Filled Medication Name Start Date Stop Date Current Medication? Ordering Clinician Indication Dosage Frequency Signature (SIG) Comments Components Source NAPROSYN ORAL 08-19 17:05: 53 Yes None Entered [facility] Procedures Procedure Date / Time Performed Performing Clinicia n Source HEAD NECK 2023-07-14 14:31:16 [facility] Start Date/Time End Date/Time Encounter Type Admission Type Attending Clinicians Care Facility Care Department Encounter ID Source 2024-01-19 15:45:00 2024-01-19 15:45:00 Outpatient R MATILDA NICHOLS CRAIG [facility] [id number] [facility] 2024-01-19 14:00:00 2024-01-19 14:00:00 Outpatient R CONI KIKA RINALDIKIKA MADRIGAL [facility] [id number] [facility] 2023-07-14 08:51:57 2023-07-14 23:59:00 Outpatient R RADIOLOGY [facility] [id number] [facility] 2023-07-14 08:51:57 2023-07-14 23:59:00 Hospital Encounter Radiology [facility] [id number] [facility] Results Test Description Test Time Test Comments [...] 0.8 x 1.3 cm (1.1 ?cc) insize. [facility]
--- NOTE | 2024-03-02 15:09 | RAD REPORT ---
EXAMINATION: US Extrem Venous W Compress Huang CLINICAL INDICATION: [facility] MAIN Pain;Swelling Bed Name: IW4 Y TECHNIQUE: Complete bilateral duplex sonography of the BILATERAL lower extremity veins was performed. The examination included compression for vein patency, color Doppler imaging and flow augmentation in response to distal compression of the distal external iliac, common femoral, femoral, popliteal, t ibial, and great and small saphenous veins. COMPARISON: No prior exam. FINDINGS: Duplex sonography testing of the veins of the BILATERAL lower extremity was performed. Color flow rebecca ging shows all veins to be compressible with [id number] color filling. Pulsatile and phasic flow is present within all lower extremity deep and superficial veins examined. IMPRESSION: There is no deep vein or superficial vein thrombosis.
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
[2024-03-02] MEDS ORDERED: FUROSEMIDE 40 MG TABLET ONE (15:35)
[2024-03-02] MEDS ORDERED: HYDROCODONE/APAP 5/325 MG TAB ONE (15:35)
[2024-03-02 21:22] VITALS: BP 112/74; TEMP 97.3; O2SAT 98
== END 2024-03-02 15:39 | disposition home or self-care (01) ==
LOC: ER 13:31
DX: R60.0 Localized edema (principal)
CPT/HCPCS: 93970; 99283

== ENCOUNTER 2024-05-27 14:18 | Emergency (ER) | payer OTHER ==
--- OUTSIDE RECORDS SUMMARY | 2024-05-27 14:21 | XMS REPORT | Continuity of Care Document ---
Author Name Unknown Address [address] [facility] [facility] [address] [place] [address] [facility] thconnect Address [address] [facility] [facility] [address] [place] [address] Care Team Providers Care Combat Systems Engineer Name Role Phone PCP, PATIENT DOES NOT HAVE A Primary Care Physic eduardo Unavailable MATILDA NICHOLS Attending Clinician UnavailMATILDA Elizabeth Attending Clinician UnavailKIKA Bradley Attending Clinician Unavailable KIKA NEWBERRY Attending Clinician Unavailable RADIOLOGY Attending Clinician Unavailable Radiology Attending Clinician Unavailable MARISOL LOMBARDO Admitting Clinician Unavailable Payers Payer Name Policy Type Policy Number Effective Date Expirati on Date Source [facility] [id number] Problems Condition Name Condition Details Condition Category Status Onset Date Resolution Date Last Treatment Date Treating Clinician Comments Source Abdominal pain, other specified site Abdominal pain, other specified site Disease Active 04-12 00:00: 00 [facility] Allergies, Adverse Reactions, Alerts Allergy Name Allergy Type Status Severity Reaction(s) Onset Date Inactive Date Treating Clinician Comments Source NO KNOWN ALLERGIE S Drug Class Active [facility] Social History Social Habit Start Date Stop Date Quantity Comments Source Sexual orientation U [facility] History of tobacco use Current smoker [facility] Alcohol intake 2013-04-12 00:00:00 2013-04-12 00:00:00 [facility] Sex Ass[birth year] At 1970 00:00:00 1970 00:00:00 [facility] Smoking Status Start Date Stop Date Source Ex-smoker [facility] Medications Ordered Medication Name Filled Medication Name Start Date Stop Date Current Medication? Ordering Clinician Indication Dosage Frequency Signature (SIG) Comments Components Source NAPROSYN ORAL 08-19 17:05: 53 Yes None Entered [facility] Procedures Procedure Date / Time Performed Performing Clinicia n Source HEAD NECK 2023-07-14 14:31:16 [facility] En[facility]ters Start Date/Time End Date/Time Encounter Type Admission Type Attending Clinicians Care Facility Care Department Encounter ID Source 2024-05-24 11:10:18 2024-05-24 11:10:18 Outpatient [facility] [id number] Matthew Obrien 2024-01-19 15:45:00 2024-01-19 15:45:00 Outpatient R MATILDA NICHOLS CRAIG [facility] [id number] [facility] 2024-01-19 14:00:00 2024-01-19 14:00:00 Outpatient R KIKA NEWBERRY SELENA [facility] [id number] [facility] 2023-07-14 08:51:57 2023-07-14 23:59:00 Outpatient R RADIOLOGY [facility] [id number] [facility] 2023-07-14 08:51:57 2023-07-14 23:59:00 Hospital Encounter Radiology [facility] [id number] [facility] Results Test Description Test Time Test [...] 0.8 x 1.3 cm (1.1 ?cc) insize. [facility]
[2024-05-27] MEDS ORDERED: KETOROLAC 30 MG/ML INJ ONE (15:40)
[2024-05-27] MEDS ORDERED: HYDROCODONE/APAP 5/325 MG TAB ONE (15:41)
--- NOTE | 2024-05-27 15:50 | RAD REPORT ---
EXAMINATION: US LOWER EXTREMITY VENOUS DOPPLER BILATERAL CLINICAL INDICATION: Male, 54 years old.Swelling;Pain TECHNIQUE: Complete bilateral duplex sonography of the lower extremity veins was performed. The exami nation included compression for vein patency, color Doppler imaging and flow augmentation in response to distal compression of the distal external iliac, common femoral, femoral, popliteal, jimbo forrest, tibial and great saphenous veins. [id number]. COMPARISON: No prior exams FINDINGS: Duplex sonography imaging demonstrates all deep examined to be fully compressible with spontaneous, p hasic and augmented flow bilaterally. IMPRESSION: No evidence of deep venous thrombosis seen in either lower extremity.
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
[2024-05-27 16:14] VITALS: BP 133/90; TEMP 97.6; O2SAT 98
== END 2024-05-27 16:10 | disposition home or self-care (01) ==
LOC: ER 14:18
DX: M79.604 Pain in right leg (principal); I10 Essential (primary) hypertension
CPT/HCPCS: 93970

== ENCOUNTER 2024-06-02 11:20 | Emergency (ER) | payer OTHER ==
--- OUTSIDE RECORDS SUMMARY | 2024-06-02 11:23 | XMS REPORT | Continuity of Care Document ---
Author Name Unknown Address [address] [place] [address] [facility] Address [address] 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 Role Phone PCP, PATIENT DOES NOT HAVE A Primary Care Physic eduardo Unavailable MALIHA FIGUEROA Attending Clinician Unavailab MALIHA Hansen Attending Clinician UnavailMaliha Vergara DO Attending Clinician [phone] MADIE MURPHY Attending Clinician Unavailable MADIE MURPHY Attending Clinician Unavailable Madie Murphy NP Attending Clinician [phone] MATILDA NICHOLS Attending Clinician UnavailMATILDA Elizabeth Attending Clinician UnavailKIKA Bradley Attending Clinician Unavailable KIKA NEWBERRY Attending Clinician Unavailable RADIOLOGY Attending Clinician Unavailable Radiology Attending Clinician Unavailable MADIE MURPHY Admitting Clinician Unavailable MARISOL LOMBARDO Admitting Clinician Unavailable Payers Payer Name Policy Type Policy Number Effective Date Expirati on Date Source [facility] OON [id number] 2024 00:00:00 [facility] OON [id number] Problems Condition Name Condition Details Condition Category Status Onset Date Resolution Date Last Treatment Date Treating Clinician Comments Source Abdominal pain, other specified site Abdominal pain, other specified site Disease Active 04-12 00:00: 00 [facility] Allergies, Adverse Reactions, Alerts Allergy Name Allergy Type Status Severity Reaction(s) Onset Date Inactive Date Treating Clinician Comments Source NO KNOWN ALLERGIE S Drug Class Active [facility] Social History Social Habit Start Date Stop Date Quantity Comments Source [facility] of tobacco use Current smoker [facility] Alcoholic beverage intake 2024-05-30 00:00:00 2024-05-30 00:00:00 [facility] History of Social function 2024-05-30 00:00:00 2024-05-30 00:00:00 [facility] Alcohol intake 2013-04-12 00:00:00 2013-04-12 00:00:00 [facility] Sex assigned at 1970 00:00:00 1970 00:00:00 [facility] Smoking Status Start Date Stop Date Source Ex-smoker [facility] Medications Ordered Medication Name Filled Medication Name Start Date Stop Date Current Medication? Ordering Clinician Indication Dosage Frequency Signature (SIG) Comments Components Source HYDROcodone -acetaminop hen (NORCO 5) tablet 1 tablet 05-30 18:30: 00 05-30 20:02 :00 No 1{tbl} 1 tablet, Oral, ONCE, 1 dose, On Wed05/30/24 at 1230, HARMONY [facility] apixaban (ELIQUIS) tablet 10 mg 05-29 02:00: 00 05-29 02:08 :00 No 10mg 10 mg, Oral, Once, 1 dose, On 05/28/24 at 2000, Routine, Indication s: DVT/PE [facility] HYDROcodone -acetaminop hen (NORCO) 10-325 mg tablet 1 tablet 05-29 01:15: 00 05-29 00:33 :00 No 1{tbl} 1 tablet, Oral, ONCE, 1 dose, On 05/28/24 at 191, Routine [facility] dexamethaso ne sod phos PF injection 10 mg 05-29 01:15: 00 05-29 00:35 :00 No 10mg 10 mg, Intramuscu lar, ONCE, 1 dose, On 05/28/24 at 191, Routine [facility] ketorolac (TORADOL) injection 30 mg 05-29 00:15: 00 05-29 00:37 :00 No 30mg 30 mg, Intramuscu lar, ONCE, 1 dose, On 05/28/24 at 1815, HARMONY [facility] apixaban (ELIQUIS) 5 mg tablet 05-28 00:00: 00 06-28 04:59 :00 Yes 1475 Take 2 tablets by mouth 2 (two) times daily for 7 days, THEN 1 tablet 2 (two) times daily for 23 days. Indication s: DVT prevention [facility] NAPROSYN ORAL 08-19 17:05: 51 Yes None Entered [facility] Vital Signs Vital Name Observation Time Observation Value Comments S ource Systolic blood pressure 2024-05-30 18:03:00 116 mm[Hg] [facility] Diastolic blood pressure 2024-05-30 18:03:00 75 mm[Hg] [facility] Heart rate 2024-05-30 18:03:00 67 /min [facility] Body temperature 2024-05-30 18:03:00 36.5 Erinn [facility] Respiratory rate 2024-05-30 18:03:00 16 /min [facility] Body height 2024-05-30 18:03:00 175.3 cm [facility] Body weight 2024-05-30 18:03:00 112.492 kg [facility] BMI 2024-05-30 18:03:00 36.62 kg/m2 [facility] Oxygen saturation in Arterial blood by Pulse oximetry 2024-05-30 18:03:00 95 /min [facility] Systolic blood pressure 2024-05-29 02:00:00 142 mm[Hg] [facility] Diastolic blood pressure 2024-05-29 02:00:00 90 mm[Hg] [facility] Heart rate 2024-05-29 02:00:00 88 /min [facility] Respiratory rate 2024-05-29 02:00:00 18 /min [facility] Oxygen saturation in Arterial blood by Pulse oximetry 2024-05-29 02:00:00 99 /min [facility] Body temperature 2024-05-28 23:48:00 37.22 Erinn [facility] Body height 2024-05-28 23:48:00 175.3 cm [facility] Body weight 2024-05-28 23:48:00 112.492 kg [facility] BMI 2024-05-28 23:48:00 36.62 kg/m2 [facility] Procedures Procedure Date / Time Performed Performing Clinicia n Source DUPLEX VENOUS LEG RIGHT - BY VASCULAR LAB 2024-05-29 01:30:33 Madie Murphy [facility] US HEAD NECK 2023-07-14 14:31:16 [facility] Start Date/Time End Date/Time Encounter Type Admission Type Attending [facility] Care Department Encounter ID Source 2024-05-30 12:09:00 2024-05-30 14:20:00 Emergency X MALIHA FIGUEROA SANDRA [facility] ERT [id number] [facility] 2024-05-30 12:09:00 2024-05-30 14:20:00 Emergency Maliha Figueroa [facility] [id number] [facility] 2024-05-28 17:50:00 2024-05-28 20:50:00 Emergency MADIE MAHAN PAMALA [facility] ERT [id number] [facility] 2024-05-28 17:50:00 2024-05-28 20:50:00 Emergency Madie Murphy [facility] [id number] [facility] 2024-05-24 11:10:18 2024-05-24 11:10:18 Outpatient SFA MATT [id number] Matthew Obrien 2024-01-19 15:45:00 2024-01-19 15:45:00 Outpatient R MATILDA NICHOLS CRAIG [facility] [id number] [facility] 2024-01-19 14:00:00 2024-01-19 14:00:00 Outpatient R KIKA NEWBERRY SELENA [facility] [id number] [facility] 2023-07-14 08:51:57 2023-07-14 23:59:00 Outpatient R RADIOLOGY [facility] [id number] [facility] 2023-07-14 08:51:57 2023-07-14 23:59:00 Hospital Encounter Radiology [facility] [id number] [facility] Results Test Description Test Time Test [...] 0.8 x 1.3 cm (1.1 ?cc) insize. [facility] Notes Date/Time Note Provider Source 2024-05-30 14:17:48 Pt. Provided d/c instructions & f/u care instructions; pt. Verbalized understanding; no IV access at d/c; pt. Ambulates with steady gait; unable to obtain DC VS due to room availability; no apparent S&S of distress noticed at time of d/c ELLE Sharma RN [facility] - [facility] 2024-05-30 12:00:41 Pt arrived ambulatory for right leg pain on elequis, dx 2 blood clots, now has swelling behind right knee since last night. INE PRECISION ETCHER Imani Carrion RN [facility] [employer] 2024-05-30 11:47:00 [facility] Emergency Department Note Patient Name: Dale Zimmerman Date of : 1970 54 year old male Treatment Room: [facility] ED [facility] Primary Care Physician: PATIENT DOES NOT HAVE A PCP Patient Escorted by: Self [9] Mode of Arrival: Personal means [1] EMS Treatment Prior to ED Arrival: Travel and Exposure Screening: Symptoms Does patient have any of these symptoms?: (not recorded) Exposure Screening Has patient had contact with someone with a communicable disease in the last month?: (not recorded) Diseases exposed to:: (not recorded) Is Patient ?: (not recorded) Exposure Date: (not recorded) Chief Complaint: Chief Complaint Patient presents with Leg Pain right History of Present Illness: The patient presents from home for evaluation for worsening pain and swelling behind his right knee. He was seen here in May 28 for similar complaints and diagnosed with a nonocclusive DVT in the right leg as well as a superficial clot. He was given a dose of Eliquis and prescribed Eliquis to take at home. He did not take a dose on May 29 but did take a dose today which is May 30. No chest pain or pressure. No shortness of breath. He reports the pain and swelling behind his knee has gotten worse since yesterday. No injury or trauma. No chest pain or pressure. No shortness of breath. He did try some Tylenol today and reports it did not help him. Here for evaluation. Past Medical History/Immunizations: History reviewed. No pertinent past medical history. Allergies: No Known Allergies Past Social History: Tobacco Use Former Past Surgical History: History reviewed. No pertinent surgical history. Review of Systems: Review of Systems Constitutional: Negative for chills and fever. Respiratory: Negative for cough and shortness of breath. Cardiovascular: Negative for chest pain. Gastrointestinal: Negative for abdominal pain. Genitourinary: Negative for dysuria. Musculoskeletal: Negative for arthralgias, neck pain and neck stiffness. Skin: Negative for wound. Neurological: Negative for dizziness. Psychiatric/Behavioral: Negative for agitation. Endocrine: Negative for goiter. Physical Exam: ED Triage Vitals [05/30/24 1203] Weight 112.5 kg (248 lb) Actual or estimated Estimated by patient/family report Height 1.753 m (5' 9") BP 116/75 Pulse 67 Resp 16 Temp 36.5 ?C (97.7 ?F) Temp source Oral SpO2 95 % Measured on Room air Physical Exam Vitals reviewed. Constitutional: Appearance: Normal appearance. He is obese. HENT: Head: Normocephalic and atraumatic. Cardiovascular: Rate and Rhythm: Normal rate and regular rhythm. Pulses: Normal pulses. Pulmonary: Effort: Pulmonary effort is normal. No respiratory distress. Abdominal: General: There is no distension. Palpations: There is no mass. Tenderness: There is no abdominal tenderness. There is no guarding. Hernia: No hernia is present. Musculoskeletal: General: Normal range of motion. Cervical back: Normal range of motion and neck supple. Comments: Mild swelling and tenderness located behind the right knee however there is no erythema, warmth or fluctuance. Full range of motion of his right hip, knee and ankle. Skin: General: Skin is warm and dry. Neurological: General: No focal deficit present. Mental Status: He is alert. Radiology: No orders to display Preliminary [facility] [address] [place] [address]. [address] [place], [place] [address] Is Support Analyst: Josh Villarreal Jr. MD. Lower Extremity Venous Report Name: DALE ZIMMERMAN Study Date: 05/30/2024 01:06 PM Patient Location: [facility] ED RTA POOL^[facility] : 1970 (M/d/yyyy) Gender: Male Age: 54 yrs Ethnicity: C Reason For Study: Right Calf Edema and Pain History: Hx of DVT and SVT Procedure Venous duplex exam of the RIGHT lower extremity demonstrates normal compressibility of the distal external iliac, common femoral, saphenofemoral junction, profunda femoral, femoral, popliteal, and calf veins without evidence of echogenic material within the lumen. Doppler signals are phasic, spontaneous, and respond to distal augmentations. There is thicken of the wall in the popliteal vein. There is chronic non-occluding superficial venous thrombosis in the greater saphenous veins below knee. No evidence of deep venous thrombosis identified. Normal findings in the contralateral common femoral vein. Interpretation Summary Lab Results: Lab Results - No data to display EKG: If EKG completed, see Procedure Note. Orders and Treatments: No orders of the defined types were placed in this encounter. Orders Placed This Encounter Medications HYDROcodone-acetaminophen (NORCO 5) tablet 1 tablet First Provider Eval: ED Events Date/Time Event User Comments 05/30/24 1204 Medical Screening Begins MALIHA FIGUEROA DO -- 05/30/24 1204 First Provider Evaluation MALIHA FIGUEROA DO -- ED COURSE Diagnosis/Impression as of 05/30/24 1346 Pain of right lower extremity Phlebitis Procedures: Procedures MDM: Medical Decision Making The patient presents from home for evaluation for worsening pain and swelling behind his right knee. He was seen here in May 28 for similar complaints and diagnosed with a nonocclusive DVT in the right leg as well as a superficial clot. He was given a dose of Eliquis and prescribed Eliquis to take at home. He did not take a dose on May 29 but did take a dose today which is May 30. No chest pain or pressure. No shortness of breath. He reports the pain and swelling behind his knee has gotten worse since yesterday. No injury or trauma. No chest pain or pressure. No shortness of breath. He did try some Tylenol today and reports it did not help him. Vital signs are stable in ER. The patient is obese. His heart is regular rhythm. His lungs are clear bilaterally. He is full range of motion of his bilateral hips, knees and ankles. There is mild tenderness located behind the right knee but no erythema, warmth or fluctuance is noted. Will give the patient pain medication and repeat his vascular ultrasound. Anticipate discharge home later. 1335 - the patient is doing well in the ER. The ultrasound of his right lower leg shows superficial blepharitis. Recommend he use warm compresses for pain control and continue the Eliquis he was recent prescribed. He remained stable here in the ER and is okay for discharge home with PCP follow-up. Problems Addressed: Pain of right lower extremity: acute illness or injury Phlebitis: chronic illness or injury Amount and/or Complexity of Data Reviewed Radiology: ordered and independent interpretation performed. Decision-making details documented in ED Course. Risk OTC drugs. Prescription drug management. Flowsheet Documentation: Scoring Tools: No data recorded Disposition/Condition: ED Disposition ED Disposition Discharge Condition Stable Comment -- Discharge Medications: Patient's Medications START taking these medications No medications on file CONTINUE taking these medications which have NOT CHANGED APIXABAN (ELIQUIS) 5 MG TABLET Take 2 tablets by mouth 2 (two) times daily for 7 days, THEN 1 tablet 2 (two) times daily for 23 days. Indications: DVT prevention BACTRIM DS ORAL None Entered TYLENOL-CODEINE #3 ORAL None Entered START taking Modified Medications as Prescribed No medications on file STOP taking these medications No medications on file Follow-up: Electronically signed by: Maliha Figueroa DO 05/30/24 1346 [facility] 2024-05-28 20:15:00 DC instructions and prescription for Eliquis reviewed with patient. He will fill prescription and take as directed. He was medicated with Eliquis 10 mg po prior to discharge. 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 He was Dc'd ambulatory-warm, dry, pink, alert. Patient limping with right leg, but steady on feet and refused offered W/C. ELLE Gomez RN [facility] 2024-05-28 17:47:55 Patient states: "I started having pain in my right leg yesterday. Sometimes it's numb." Denies trauma. ELLE Latham RN [facility]
[2024-06-02] MEDS ORDERED: KETOROLAC 30 MG/ML INJ ONE (12:15)
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
[2024-06-02 12:31] VITALS: BP 122/80; TEMP 98; O2SAT 96
== END 2024-06-02 12:27 | disposition home or self-care (01) ==
LOC: ER 11:20
DX: L03.313 Cellulitis of chest wall (principal); V29.408A Other motorcycle driver injured in collision with unspecified motor vehicles in traffic accident, initial encounter
CPT/HCPCS: 93005; 96372; 99285

== ENCOUNTER 2024-11-05 16:40 | Emergency (ER) | payer OTHER ==
--- OUTSIDE RECORDS SUMMARY | 2024-11-05 16:43 | XMS REPORT | Continuity of Care Document ---
Author Name Unknown Address [address] [place] [address] [facility] Address [address] [place] [address] Care Team Providers Care Drapery Supervisor Name Role Phone PCP, PATIENT DOES NOT HAVE A Primary Care Physic eduardo Unavailable MALIHA FIGUEROA Attending Clinician Unavailab MALIHA Hansen Attending Clinician Unavailab Maliha Hansen DO Attending Clinician MADIE MURPHY Attending Clinician Unavailable MADIE MURPHY Attending Clinician Unavailable Madie Murphy NP Attending Clinician [phone] MATILDA NICHOLS Attending Clinician UnavailMATILDA Elizabeth Attending Clinician UnavailKIKA Bradley Attending Clinician Unavailable KIKA NEWBERRY Attending Clinician Unavailable RADIOLOGY Attending Clinician Unavailable Radiology Attending Clinician Unavailable MALIHA FIGUEROA Admitting Clinician Unavailab MADIE Boyce Admitting Clinician Unavailable MARISOL LOMBARDO Admitting Clinician Unavailable Payers Payer Name Policy Type Policy Number Effective Date Expirati on Date Source [facility] O [id number] 2024 00:00:00 [facility] O [id number] Problems Condition Name Condition Details Condition Category Status Onset Date Resolution Date Last Treatment Date Treating Clinician Comments Source Abdominal pain, other specified site Abdominal pain, other specified site Disease Active 04-12 00:00: 00 [facility] Allergies, Adverse Reactions, Alerts Allergy Name Allergy Type Status Severity Reaction(s) Onset Date Inactive Date Treating Clinician Comments Source NO KNOWN ALLERGIE S Drug Class Active [facility] Social History Social Habit Start Date Stop Date Quantity Comments [facility] of [facility] use Current smoker [facility] Alcoholic beverage intake 2024-05-30 00:00:00 2024-05-30 00:00:00 [facility] History of Social function 2024-05-30 00:00:00 2024-05-30 00:00:00 [facility] Alcohol intake 2013-04-12 00:00:00 2013-04-12 00:00:00 [facility] Sex assigned at 1970 00:00:00 1970 00:00:00 [facility] Smoking Status Start Date Stop Date Source Ex-smoker [facility] Medications Ordered Medication Name Filled Medication Name Start Date Stop Date Current Medication? Ordering Clinician Indication Dosage Frequency Signature (SIG) Comments Components Source HYDROcodone -acetaminop hen (NORCO 5) tablet 1 tablet 05-30 18:30: 00 05-30 20:02 :00 No 1{tbl} 1 tablet, Oral, ONCE, 1 dose, On Wed05/30/24 at 1230, HARMONY [facility] apixaban (ELIQUIS) tablet 10 mg 05-29 02:00: 00 05-29 02:08 :00 No 10mg 10 mg, Oral, Once, 1 dose, On 05/28/24 at 2000, Routine, Indication s: DVT/PE [facility] HYDROcodone -acetaminop hen (NORCO) 10-325 mg tablet 1 tablet 05-29 01:15: 00 05-29 00:33 :00 No 1{tbl} 1 tablet, Oral, ONCE, 1 dose, On 05/28/24 at 191, Routine [facility] dexamethaso ne sod phos PF injection 10 mg 05-29 01:15: 00 05-29 00:35 :00 No 10mg 10 mg, Intramuscu lar, ONCE, 1 dose, On 05/28/24 at 191, Routine [facility] ketorolac (TORADOL) injection 30 mg 05-29 00:15: 00 05-29 00:37 :00 No 30mg 30 mg, Intramuscu lar, ONCE, 1 dose, On 05/28/24 at 1815, HARMONY [facility] apixaban (ELIQUIS) 5 mg tablet 05-28 00:00: 00 06-28 04:59 :00 No 1475 Take 2 tablets by mouth 2 (two) times daily for 7 days, THEN 1 tablet 2 (two) times daily for 23 days. Indication s: DVT prevention [facility] NAPROSYN ORAL 08-19 17:05: 51 Yes None Entered [facility] Vital Signs Vital Name Observation Time Observation Value Comments S ource Systolic blood pressure 2024-05-30 18:03:00 116 mm[Hg[facility] Diastolic blood pressure 2024-05-30 18:03:00 75 mm[Hg] [facility] Heart rate 2024-05-30 18:03:00 67 /min [facility] Body temperature 2024-05-30 18:03:00 36.5 Erinn [facility] Respiratory rate 2024-05-30 18:03:00 16 /min [facility] Body height 2024-05-30 18:03:00 175.3 cm [facility] Body weight 2024-05-30 18:03:00 112.492 kg [facility] BMI 2024-05-30 18:03:00 36.62 kg/m2 [facility] Oxygen saturation in Arterial blood by Pulse oximetry 2024-05-30 18:03:00 95 /min [facility] Systolic blood pressure 2024-05-29 02:00:00 142 mm[Hg] [facility] Diastolic blood pressure 2024-05-29 02:00:00 90 mm[Hg] [facility] Heart rate 2024-05-29 02:00:00 88 /min [facility] Respiratory rate 2024-05-29 02:00:00 18 /min [facility] Oxygen saturation in Arterial blood by Pulse oximetry 2024-05-29 02:00:00 99 /min [facility] Body temperature 2024-05-28 23:48:00 37.22 Erinn [facility] Body height 2024-05-28 23:48:00 175.3 cm [facility] Body weight 2024-05-28 23:48:00 112.492 kg [facility] BMI 2024-05-28 23:48:00 36.62 kg/m2 [facility] Procedures Procedure Date / Time Performed Performing Clinicia n Source DUPLEX VENOUS LEG RIGHT - BY VASCULAR LAB 2024-05-29 01:30:33 Madie Murphy [facility] US HEAD NECK 2023-07-14 14:31:16 Requisition, Paper [facility] Encounters Start Date/Time End Date/Time Encounter Type Admission Type Attending [facility] Care Facility Care Department Encounter ID Source 2024-05-30 12:09:00 2024-05-30 14:20:00 Emergency X MALIHA FIGUEROA SANDRA [facility] ERT [id number] [facility] 2024-05-30 12:09:00 2024-05-30 14:20:00 Emergency Maliha Figueroa [facility] [id number] [facility] 2024-05-28 17:50:00 2024-05-28 20:50:00 Emergency MADIE MAHAN PAMALA [facility] ERT [id number] [facility] 2024-05-28 17:50:00 2024-05-28 20:50:00 Emergency Madie Murphy [facility] [id number] [facility] 2024-05-24 11:10:18 2024-05-24 11:10:18 Outpatient SFA MATT [id number] Matthew Obrien 2024-01-19 15:45:00 2024-01-19 15:45:00 Outpatient R MATILDA NICHOLS CRAIG [facility] [id number] [facility] 2024-01-19 14:00:00 2024-01-19 14:00:00 Outpatient R KIKA NEWBERRY SELENA [facility] [id number] [facility] 2023-07-14 08:51:57 2023-07-14 23:59:00 Outpatient R RADIOLOGY [facility] [id number] [facility] 2023-07-14 08:51:57 2023-07-14 23:59:00 Hospital Encounter Radiology [facility] [id number] [facility] Results Test Description Test Time Test [...] 0.8 x 1.3 cm (1.1 ?cc) insize. [facility] Notes Date/Time Note Provider Source 2024-05-30 14:17:48 Pt. Provided d/c instructions & f/u care instructions; pt. Verbalized understanding; no IV access at d/c; pt. Ambulates with steady gait; unable to obtain DC VS due to room availability; no apparent S&S of distress noticed at time of d/c RY TEAM LEADER Nancy Sharma RN [facility] - [facility] 2024-05-30 12:00:41 Pt arrived ambulatory for right leg pain on elequis, dx 2 blood clots, now has swelling behind right knee since last night. RY TEAM LEADER Imani Carrion RN [facility] - [employer] 2024-05-30 11:47:00 [facility] Emergency Department Note Patient Name: Dale Zimmerman Date of : 1970 54 year old male Treatment Room: [facility] ED [facility] Primary Care Physician: PATIENT DOES NOT HAVE [...] Radiology: No orders to display Preliminary The [facility] Vascular Lab [address] [place], [place] [address] Building Trades Teacher: Josh Villarreal Jr. MD. Lower Extremity Venous Report Name: DALE ZIMMERMAN Study Date: 05/30/2024 01:06 PM Patient Location: AED^ADC ED RTA POOL^[facility] : 1970 (M/d/yyyy) Gender: Male Age: 54 [...] signed by: Maliha Figueroa DO 05/30/24 1346 [facility] 2024-05-28 20:15:00 DC instructions and prescription for Eliquis reviewed with patient. He will fill prescription and take as directed. He was medicated with Eliquis 10 mg po prior to discharge. 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 He was Dc'd ambulatory-warm, dry, pink, alert. Patient limping with right leg, but steady on feet and refused offered W/C. ELLE Gomez RN [facility] 2024-05-28 17:47:55 Patient states: "I started having pain in my right leg yesterday. Sometimes it's numb." Denies trauma. ELLE Latham RN [facility]
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
[2024-11-05] MEDS ORDERED: AMOX/K CLAV 875 MG TAB ONE (16:56)
[2024-11-05 17:06] VITALS: BP 119/88; TEMP 98.2; O2SAT 95
== END 2024-11-05 17:01 | disposition home or self-care (01) ==
LOC: ER 16:40
DX: K04.7 Periapical abscess without sinus (principal)
CPT/HCPCS: 99283

== ENCOUNTER 2024-11-23 14:24 | Emergency (ER) | payer OTHER ==
--- OUTSIDE RECORDS SUMMARY | 2024-11-23 14:36 | XMS REPORT | Continuity of Care Document ---
Author Name Unknown Address [address] [facility] [address] [facility] [address] [place] [address] [facility] Address [address] [facility] [facility] [address] [place] [address] Care Team Providers Care Discovery Manager Name Role Phone PCP, PATIENT DOES NOT HAVE A Primary Care Physic eduardo Unavailable MALIHA FIGUEROA Attending Clinician Unavailab MALIHA Hansen Attending Clinician Unavailab Maliha Hansen DO Attending Clinician [phone] MADIE MURPHY Attending Clinician Unavailable MADIE MURPHY Attending Clinician Unavailable Madie Murphy NP Attending Clinician [phone] MATILDA NICHOLS Attending Clinician UnavailMATILDA Elizabeth Attending Clinician UnavailKIKA Bradley Attending Clinician Unavailable KIKA NEWBERRY Attending Clinician Unavailable RADIOLOGY Attending Clinician Unavailable Radiology Attending Clinician Unavailable MALIHA FIGUEROA Admitting Clinician Unavailab MADIE Boyce Admitting Clinician Unavailable MARIOSL LOMBARDO Admitting Clinician Unavailable Payers Payer Name Policy Type Policy Number Effective Date Expirati on Date Source [facility] O [id number] 2024 00:00:00 [facility] O [id number] Problems Condition Name Condition Details Condition Category Status Onset Date Resolution Date Last Treatment Date Treating Clinician Comments Source Abdominal pain, other specified site Abdominal pain, other specified site Disease Active 04-12 00:00: 00 [facility] Allergies, Adverse Reactions, Alerts Allergy Name Allergy Type Status Severity Reaction(s) Onset Date Inactive Date Treating Clinician Comments Source NO KNOWN ALLERGIE S Drug Class Active [facility] Social History Social Habit Start Date Stop Date Quantity Comments Source [facility] of tobacco use Current smoker [facility] Alcoholic beverage intake 2024-05-30 00:00:00 2024-05-30 00:00:00 [facility] History of Social function 2024-05-30 00:00:00 2024-05-30 00:00:00 [facility] Alcohol intake 2013-04-12 00:00:00 2013-04-12 00:00:00 [facility] Sex assigned at 1970 00:00:00 1970 00:00:00 [facility] Smoking Status Start Date Stop Date Source Ex-smoker [facility] Medications Ordered Medication Name Filled Medication Name Start Date Stop Date Current Medication? Ordering Clinician Indication Dosage Frequency Signature (SIG) Comments Components Source HYDROcodone -acetaminop hen (NORCO 5) tablet 1 tablet 05-30 18:30: 00 05-30 20:02 :00 No 1{tbl} 1 tablet, Oral, ONCE, 1 dose, On Wed05/30/24 at 1230, [facility] apixaban (ELIQUIS) tablet 10 mg 05-29 02:00: 00 05-29 02:08 :00 No 10mg 10 mg, Oral, Once, 1 dose, On 05/28/24 at 2000, Routine, Indication s: DVT/PE [facility] HYDROcodone -acetaminop hen (NORCO) 10-325 mg tablet 1 tablet 05-29 01:15: 00 05-29 00:33 :00 No 1{tbl} 1 tablet, Oral, ONCE, 1 dose, On 05/28/24 at 191, Routine [facility] dexamethaso ne sod phos PF injection 10 mg 05-29 01:15: 00 05-29 00:35 :00 No 10mg 10 mg, Intramuscu lar, ONCE, 1 dose, On 05/28/24 at 191, Routine [facility] ketorolac (TORADOL) injection 30 mg 05-29 00:15: 00 05-29 00:37 :00 No 30mg 30 mg, Intramuscu lar, ONCE, 1 dose, On 05/28/24 at 1815, [facility] apixaban (ELIQUIS) 5 mg tablet 05-28 00:00: 00 06-28 04:59 :00 No 1475 Take 2 tablets by mouth 2 (two) times daily for 7 days, THEN 1 tablet 2 (two) times daily for 23 days. Indication s: DVT prevention [facility] NAPROSYN ORAL 08-19 17:05: 51 Yes None Entered [facility] Vital Signs Vital Name Observation Time Observation Value Comments S ource Systolic blood pressure 2024-05-30 18:03:00 116 mm[Hg] [facility] Diastolic blood pressure 2024-05-30 18:03:00 75 mm[Hg] [facility] Heart rate 2024-05-30 18:03:00 67 /min [facility] Body temperature 2024-05-30 18:03:00 36.5 [facility] Respiratory rate 2024-05-30 18:03:00 16 /min [facility] Body height 2024-05-30 18:03:[address] [facility] Body weight 2024-05-30 18:03:[address] [facility] BMI 2024-05-30 18:03:00 36.62 kg/m2 [facility] Oxygen saturation in Arterial blood by Pulse oximetry 2024-05-30 18:03:00 95 /min [facility] Systolic blood pressure 2024-05-29 02:00:00 142 mm[Hg] [facility] Diastolic blood pressure 2024-05-29 02:00:00 90 mm[Hg] [facility] Heart rate 2024-05-29 02:00:00 88 /min [facility] Respiratory rate 2024-05-29 02:00:00 18 /min [facility] Oxygen saturation in Arterial blood by Pulse oximetry 2024-05-29 02:00:00 99 /min [facility] Body temperature 2024-05-28 23:48:00 37.22 [facility] Body height 2024-05-28 23:48:[address] [facility] Body weight 2024-05-28 23:48:[address] [facility] BMI 2024-05-28 23:48:00 36.62 kg/m2 [facility] Procedures Procedure Date / Time Performed Performing Clinicia n Source DUPLEX VENOUS LEG RIGHT - BY VASCULAR LAB 2024-05-29 01:30:33 Madie Murphy [facility] US HEAD NECK 2023-07-14 14:31:16 Requisition, Paper [facility] Encounters Start Date/Time End Date/Time Encounter Type Admission Type Attending [facility] Care Facility Care Department Encounter ID Source 2024-05-30 12:09:00 2024-05-30 14:20:00 Emergency X MALIHA FIGUEROA [facility]DRA [facility] ERT [id number] [facility] 2024-05-30 12:09:00 2024-05-30 14:20:00 Emergency Maliha Figueroa [facility] [id number] [facility] 2024-05-28 17:50:00 2024-05-28 20:50:00 Emergency MADIE MAHAN PAMALA [facility] ERT [id number] [facility] 2024-05-28 17:50:00 2024-05-28 20:50:00 Emergency Madie Murphy [facility] [id number] [facility] 2024-05-24 11:10:18 2024-05-24 11:10:18 Outpatient SFA MATT [id number] Matthew Obrien 2024-01-19 15:45:00 2024-01-19 15:45:00 Outpatient R MATILDA NICHOLS CRAIG [facility] [id number] [facility] 2024-01-19 14:00:00 2024-01-19 14:00:00 Outpatient R KIKA NEWBERRY SELENA [facility] [id number] [facility] 2023-07-14 08:51:57 2023-07-14 23:59:00 Outpatient R RADIOLOGY [facility] [id number] [facility] 2023-07-14 08:51:57 2023-07-14 23:59:00 Hospital Encounter Radiology [facility] [id number] [facility] Results Test Description Test Time Test Comments [...] 0.8 x 1.3 cm (1.1 ?cc) insize. [facility] Notes Date/Time Note Provider Source 2024-05-30 14:17:48 Pt. Provided d/c instructions & f/u care instructions; pt. Verbalized understanding; no IV access at d/c; pt. Ambulates with steady gait; unable to obtain DC VS due to room availability; no apparent S&S of distress noticed at time of d/c [facility] Nancy Sharma RN [facility] 2024-05-30 12:00:41 Pt arrived ambulatory for right leg pain on elequis, dx 2 blood clots, now has swelling behind right knee since last night. [facility] Imani Carrion RN [facility] 2024-05-30 11:47:00 [facility] Emergency Department Note Patient Name: Dale Zimmerman Date of : 1970 54 year old male Treatment Room: [facility] ED [facility] Primary Care Physician: PATIENT DOES NOT HAVE [...] Radiology: No orders to display Preliminary [facility] Vascular Lab [address] [place], [place] [address] Scrubber System Attendant: Josh Villarreal Jr. MD. Lower Extremity Venous Report Name: DALE ZIMMERMAN Study Date: 05/30/2024 01:06 PM Patient Location: AED^ADC ED RTA POOL^ADERTA-PL^[facility] : 1970 (M/d/yyyy) Gender: Male Age: [...] signed by: Maliha Figueroa DO 05/30/[address] [facility] 2024-05-28 20:15:00 DC instructions and prescription for Eliquis reviewed with patient. He will fill prescription and take as directed. He was medicated with Eliquis 10 mg po prior to discharge. 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 He was Dc'd ambulatory-warm, dry, pink, alert. Patient limping with right leg, but steady on feet and refused offered W/C. ELLE Gomez RN [facility] 2024-05-28 17:47:55 Patient states: "I started having pain in my right leg yesterday. Sometimes it's numb." Denies trauma. ELLE Latham RN [facility]
[2024-11-23] MEDS ORDERED: HYDROCODONE/APAP 7.5/325 MG TAB ONE (15:03)
[2024-11-23] MEDS ORDERED: KETOROLAC 30 MG/ML INJ ONE (15:03)
--- NOTE | 2024-11-23 16:43 | RAD REPORT ---
EXAM: XR Knee Right 3 View HISTORY: [facility] MAIN PAIN Bed Name: COMPARISON: 06/26/2014 TECHNIQUE: 3 views of the right knee were obtained. FINDINGS: No knee effusion is seen. There is no evidence of acute fracture or dislocation. Mild dege nerative changes are seen. No soft tissue swelling or other soft tissue abnormality is present. IMPRESSION: No evidence of acute osseous abnormality. Mild tricompartmental osteoarthritic changes.
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
--- NOTE | 2024-11-23 18:42 | RAD REPORT ---
EXAMINATION: US RIGHT LOWER EXTREMITY VENOUS DOPPLER CLINICAL INDICATION: [facility] MAIN right leg PAIN Bed Name: 27 Y TECHNIQUE: Complete bilateral duplex sonography of the RIGHT lower extremity veins was performed. The examination included compression for vein patency, color Doppler imaging and flow augmentation in response to distal compression of the distal external iliac, common femoral, femoral, popliteal, tibi al, and great and small saphenous veins. COMPARISON: No prior exam. FINDINGS: Duplex sonography testing of the veins of the RIGHT lower extremity was performed. Color flow imaging shows all veins to be compressible with [id number] color filling. Pulsatile and phasic flow is present within all lower extremity deep and superficial veins examined. IMPRESSION: No evidence of deep venous thrombosis.
--- NOTE | 2024-11-23 18:43 | RAD REPORT ---
EXAMINATION:Lower Extremity Artery Uni Ltd CLINICAL INDICATION: Male, 54 years old. [facility] MAIN right leg PAIN Bed Name: TECHNIQUE: Arterial duplex ultrasound was performed of the Right lower extremity with real-time, colo r-flow, and spectral wave Doppler evaluation. COMPARISON: No prior exam. FINDINGS: Mild plaque throughout the evaluated arterial system. Triphasic waveforms are seen throughout the ev aluated Right lower extremity arterial system, to the level of the popliteal artery. Monophasic to biphasic waveforms along the posterior tibial and dorsalis pedis arteries. No other suspicious findin gs. IMPRESSION: Up to moderate peripheral vascular disease along the distal right lower extremity.
[2024-11-24 01:12] VITALS: TEMP 98.4
[2024-11-24 01:14] VITALS: BP 141/99; O2SAT 98
== END 2024-11-23 18:54 | disposition home or self-care (01) ==
LOC: ER 14:24
DX: M25.561 Pain in right knee (principal)
CPT/HCPCS: 93926; 93971; 96372; 99284